=== PATIENT | female | born 1995 | race Caucasian/White ===

== ENCOUNTER → 2021-02-06 11:54 | Outpatient (CLI) | payer MEDICAID, SELFPAY | PROVIDERS: Referring Provider Orthopaedic Surgery; Visit Provider Orthopaedic Surgery | DX: Z11.59 Encounter for screening for other viral diseases (principal) | CPT/HCPCS: 87426; C9803 ==

== ENCOUNTER 2022-12-18 21:33 | Emergency (ER) | payer OTHER, MEDICAID, SELFPAY ==
[2022-12-18 21:34] VITALS: BP 135/78; PULSE 88; RESP 21; TEMP 36.5; O2SAT 98; BMI 33.0
[2022-12-18 21:43] VITALS: O2SAT 100
--- NOTE | 2022-12-18 22:20 | EKG12_ITS ---
Test Reason : SOB Blood Pressure : / mmHG Vent. Rate : 089 BPM Atrial Rate : 089 BPM P-R Int : 140 ms QRS Dur : 076 ms QT Int : 368 ms P-R-T Axes : 048 018 040 degrees QTc Int : 447 ms Normal sinus rhythm Nonspecific T wave abnormality Abnormal ECG Confirmed by BRIDGET RAMSAY, VEL ([id number]), advertising editor EVENS GREER ([id number]) on 12/19/2022 8:55:42 AM Referred By: Confirmed By:VEL GILL MD
--- NOTE | 2022-12-18 22:21 | CT_ITS ---
EXAM: CT ANGIOGRAPHY CHEST WITHOUT AND WITH INTRAVENOUS CONTRAST CLINICAL INDICATION: Dyspnea TECHNIQUE: Helically acquired angiography images were obtained of the chest without and with intravenous contrast. CTDIvol = ( 13.61 ) mGy, DLP = ( 462.90 ) mGycm This CT exam was performed using one or more of the following dose reduction techniques: automated exposure control, adjustment of the mA and/or kV according to patient size, and/or use of iterative reconstruction technique. MIP reconstructed images were created and reviewed. CONTRAST: IV 100mL [id number] COMPARISON: No relevant prior studies available. FINDINGS: PULMONARY ARTERIES: Unremarkable. Normal in caliber. No evidence of pulmonary embolism. AORTA: Unremarkable. Normal in caliber. No evidence of dissection. GREAT VESSELS OF AORTIC ARCH: Unremarkable. Normal in caliber. No evidence of dissection. LUNGS AND PLEURAL SPACES: Unremarkable. No mass. No consolidation or edema. No pleural effusion or thickening. No pneumothorax. HEART: Unremarkable. Heart size is normal. No pericardial effusion. No significant coronary artery calcifications. MEDIASTINUM: Unremarkable. No mediastinal or hilar adenopathy. Esophagus is unremarkable. No hiatal hernia. THYROID: Unremarkable. No thyroid lesions. BONES/JOINTS: Unremarkable. No suspicious lytic or blastic abnormality. CT/CTA Chest W/WO Contrast IMPRESSION: Negative CTA chest. AIDOC was utilized to assist in identifying pertinent positive findings. Electronically Signed: Lebron Gardner MD at 0:12 EDT ,
[2022-12-18 22:33] LABS: Absolute Lymphocyte Count 2.95 X10^3/uL (0.83-4.51); Absolute Neutrophil Count 5.6 X10^3/uL (2.0-7.7); Basophil# 0.06 X10^3/uL; Basophil% 0.6 % (0-1); Eosinophil# 0.12 X10^3/uL; Eosinophils% 1.3 % (0-5); Hematocrit 39.7 % (37-47); Hemoglobin 12.3 g/dL (12.0-15.0); Lymphocyte # 2.95 X10^3/ul (0.83-4.51); Lymphocyte % 31.4 % (19-41); Mean Corpuscular Volume 83.9 fL (81-99); Mean Platelet Vol. 11.8 fl (6.2-12.0); Monocyte# 0.57 X10^3/uL; Monocyte% 6.1 % (0-10); NRBC Flagged by Analyzer 0 % (0-5); Neutrophil # 5.64 X10^3/uL (2.7-7.7); Neutrophil % 60.1 % (47-70); Platelet Count 193 K/mm3 (150-450); RBC Distribution Width CV 13.5 % (11.6-14.6); RBC Distribution Width SD 41.1 fl (35.1-43.9); Red Blood Count 4.73 M/mm3 (4.2-5.4); White Blood Count 9.4 K/mm3 (4.4-11.0)
[2022-12-18] MEDS: Ipratropium/Albuterol Sulfate 3 ML AMPUL.NEB INHALATION (22:43)
[2022-12-18 22:44] VITALS: PULSE 88; RESP 18
[2022-12-18 22:52] LABS: Anion Gap 6 (5-15); BUN 13 mg/dL (7-18); BUN/Creat Ratio 19.5 RATIO (10-20); Calcium,Total 9.2 mg/dL (8.5-10.1); Chloride 107 mmol/L (98-107); Creatinine, Serum 0.67 mg/dL (0.55-1.02); EST Glomerular Filtration Rate 112 mL/min (>60); Est Glom Filt Rate - Afr Amer 135 mL/min (>60); Estimated Creatinine Clearance 122.65 ml/min; Glucose 91 mg/dL (74-106); Potassium 3.4 mmol/L (3.5-5.1); Sodium Level 140 mmol/L (136-145); Troponin-I HS < 3 pg/mL (3.0-54.0)
--- NOTE | 2022-12-18 22:53 | ED.VIS.DYS ---
HPI History of Present Illness Chief Complaint: Shortness of Breath Informant: patient Onset/Context/Timing Onset: Today Context: gradual Timing: Continuous Quality: Positive for - (Tightness) Worsened by: - (Talking) Relieved by: Nothing Associated Symptoms cough; Negative for rhinorrhea, post nasal drip, ear pain, fever, sore throat, chills, sweats, clear sputum, white sputum, yellow sputum or green sputum Chest Pain: Positive for Intermittent, Sharp and Tightness Narrative Narrative: Patient presents with shortness of breath and chest tightness that began today. Patient states that she has a known DVT in her right calf and her saphenous vein. Patient states she was started on Xarelto today by her primary care physician. Patient states she has some tightness across her chest. Patient states it is over the left parasternal area and radiates to the left shoulder. Patient states it is worse with talking. Patient admits to a cough but denies any sputum production. Patient denies any fevers or chills. Patient states sometimes her pain radiates into her back as well. 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 Depression History of LEEP (loop electrosurgical excision procedure) of cervix complicating Migraine Home Medications rivaroxaban 10 mg tablet (Xarelto) 10 mg PO DAILY 12/18/22 [History Last Taken Unknown] Allergy/AdvReac Type Severity Reaction Status Date / Time adhesive Allergy Rash Verified 12/18/22 21:39 Surgical History History of hip surgery History of knee surgery [place] teeth removed Social History Smoking Status: Never smoker ROS ROS ED Constitutional Constitutional ED: Denies chills or fever(s) Eyes Eyes: Denies blurry vision or change in vision ENT ENT ED: Denies rhinorrhea or sore throat Cardiovascular Cardiovascular: Reports chest pain; Denies palpitations Respiratory/Chest Respiratory/Chest: Reports cough and dyspnea Gastrointestinal Gastrointestinal: Denies nausea or vomiting Genitourinary Genitourinary ED: Denies dysuria or hematuria Musculoskeletal Musculoskeletal: Reports back pain; Denies neck pain Integumentary Denies abscess or rash Neurologic Neurologic: Denies headache(s) or weakness Allergic/Immunologic Allergic/Immunologic ED: Denies mouth swelling or urticaria EXAM Physical Exam Const Vital Signs: 12/18/22 21:34 12/18/22 21:43 12/18/22 22:44 Temperature 97.7 F L Temperature Source Temporal Pulse Rate 88 88 Respiratory Rate 21 H 18 Respiratory Effort Normal Respiratory Depth Normal Respiratory Pattern Normal Blood Pressure 135/78 H Blood Pressure Mean 97 Pulse Ox 98 Oxygen Delivery Method Room Air Room Air 12/19/22 00:02 Temperature Temperature Source Pulse Rate 99 Respiratory Rate 20 H Respiratory Effort Respiratory Depth Respiratory Pattern Blood Pressure 118/77 Blood Pressure Mean 90 Pulse Ox 97 Oxygen Delivery Method Room Air Positive well nourished, well developed and obese General Appearance ED: well developed and NAD Nutritional Appearance: obese HEENT Reports moist mucous membranes Neck supple and no JVD Resp normal respiratory effort Auscultation: diminished lung sounds diffuse Cardio regular rate, regular rhythm and no murmurs GI normal to inspection, nondistended, normoactive bowel sounds and non-tender Palpation: soft Neuro oriented x3, CN's II-XII intact bilaterally and no sensory deficits noted Sensorium / Orientation: alert Motor Exam: strength 5/5 throughout Psych mental status grossly normal Skin no rashes or lesions noted MDM MDM MDM Narrative Medical decision making narrative: Differential diagnosis includes pulmonary embolism, cardiac dysrhythmia, cardiac ischemia, pneumonia, and pneumothorax. EKG will be obtained to assess for cardiac dysrhythmia and cardiac ischemia. CTA of the chest will be obtained to assess for pulmonary embolism. CBC will be obtained to assess for leukocytosis and anemia. Basic metabolic profile will be obtained to assess for electrolyte abnormality and renal function. High-sensitivity troponin will be obtained to assess for cardiac ischemia. Lab Data Attestation: I reviewed the patient's lab results. Lab results narrative: CBC was reviewed and was within normal limits. Basic metabolic profile was reviewed and was within normal limits. High-sensitivity troponin was reviewed and was normal. Labs: Laboratory Results - last 24 hr 12/18/22 12/18/22 22:25 22:25 WBC 9.4 RBC 4.73 Hgb 12.3 Hct 39.7 MCV 83.9 MCH 26.0 L MCHC 31.0 L RDW Std Deviation 41.1 RDW Coeff of [place] 13.5 Plt Count 193 MPV 11.8 Immature Gran % (Auto) 0.500 Neut % (Auto) 60.1 Lymph % (Auto) 31.4 [place] % (Auto) 6.1 Eos % (Auto) 1.3 Baso % (Auto) 0.6 Absolute Neuts (auto) 5.6 Absolute Lymphs (auto) 2.95 Nucleated RBC % 0 Sodium 140 Potassium 3.4 L Chloride 107 Carbon Dioxide 27.0 Anion Gap 6 BUN 13 Creatinine 0.67 Estim Creat Clear Calc 122.65 Est GFR (MDRD) Af Amer 135 Est GFR (MDRD) Non-Af 112 BUN/Creatinine Ratio 19.5 Glucose 91 Calcium 9.2 Troponin I High Sens < 3 L Radiography CTA PE Study: No Evidence of PE and No Evidence of Dissection Diagnostic Testing: Clinical Impression(s) from Imaging Studies Chest CTA 12/18/22 22:21 IMPRESSION: Negative CTA chest. AIDOC was utilized to assist in identifying pertinent positive findings. Electronically Signed: Lebron Gardner MD at 0:12 EDT , CTA of the chest was obtained. There is no evidence of pulmonary embolism or aortic dissection. There is no acute infiltrate. This was interpreted by the radiologist and was also independently reviewed by myself. EKG Initial EKG: Attestation: I personally reviewed and interpreted this EKG as follows: Interpretation: Sinus Rhythm (89), No Acute Injury Pattern and Non-Specific ST Changes Comments: EKG was obtained. On my independent interpretation, it showed a normal sinus rhythm with a rate of 89. OR interval, QRS interval, and QTc intervals were all normal. [place] was normal. There are nonspecific ST-T wave changes. Prior EKG tracings: not available for review Prior: No Prior Treatment and Re-Evaluation :: Patient was given a DuoNeb aerosol here. Patient is feeling better on reevaluation. Patient was advised of her findings. Patient has a HEART score of 1. Patient was advised that this is low risk for acute cardiac event. Patient was instructed to continue her Xarelto as prescribed. Patient was instructed to follow-up with her primary care physician in 5 to 7 days. Patient was instructed return if worse in any way. Patient understood and was agreeable with the plan. All questions were answered. Discharge Plan Triage Chief Complaint: Shortness of Breath ED Provider: Karsten Bailey Dx/Rx/DC Orders Clinical Impression: Chest pain, DVT (deep venous thrombosis) Instructions: ED Chest Pain, Uncertain Cause, ED Deep Vein Thrombosis (DVT) Prescriptions: No Action Xarelto 10 mg tablet 10 mg PO DAILY Primary Care Provider: Lian Glover NP Referrals: Lian Glover BIOLOGICAL CHEMIST, BIOLOGICAL CHEMIST-C [Primary Care Provider] - 5-7 Days Disposition Disposition: Home, Self Care
[2022-12-19 00:02] VITALS: BP 118/77; PULSE 99; RESP 20; O2SAT 97
[2022-12-19 01:08] VITALS: BP 121/77; PULSE 68; RESP 15; O2SAT 98
== END 2022-12-19 01:09 | disposition home or self-care (01) ==
PROVIDERS: Emergency Provider Emergency Medicine; PCP Internal Medicine; Visit Provider Emergency Medicine
DX: R07.9 Chest pain, unspecified (principal); I82.461 Acute embolism and thrombosis of right calf muscular vein; R06.02 Shortness of breath; E66.9 Obesity, unspecified
CPT/HCPCS: 71275; 80048; 84484; 85025; 93005; 94640; 99285; Q9967; A4216